=== PATIENT | female | born 1945 | race Caucasian/White ===

== ENCOUNTER 2018-12-01 07:19 | Day surgery (SDC) | payer MEDICARE, BC ==
[2018-12-01] MEDS ORDERED: Lactated Ringers 1,000 ML IV SCH (08:30)
[2018-12-01] MEDS ORDERED: Midazolam 1 MG/ML 2 ML SDV ONE (09:02)
[2018-12-01] MEDS ORDERED: fentaNYL 100 MCG/2 ML SDV ONE (09:02)
[2018-12-01] MEDS ORDERED: Propofol 200 MG/20 ML SDV ONE (09:02)
--- NOTE | 2018-12-01 11:49 | OR ---
DATE OF PROCEDURE: 12/01/2018 PREOPERATIVE DIAGNOSIS: Positive Cologuard. POSTOPERATIVE DIAGNOSES: Three small colon polyps, positive Cologuard. PROCEDURE: Colonoscopy to the cecum with biopsy resection of small polyps in the proximal transverse colon, mid transverse colon, and 20 cm from the anal verge. SURGEON: Michael Morales MD ANESTHESIA: IV anesthesia with monitored anesthesia care. INDICATION: This 73-year-old white female is referred for a colonoscopy because of a positive Cologuard. She is not sure when her last colonoscopic exam was done, but she thinks it is over ten years ago. I counseled her for the procedure including risks and alternatives, and she gave her informed consent to proceed. DESCRIPTION OF PROCEDURE: The patient was placed in the left lateral decubitus position. IV anesthesia was administered by the Anesthesia Service. Time-out was held. A rectal exam was performed, which was unremarkable. The flexible video Olympus colonoscope was introduced through her anus, up her rectum, and out her colon all the way to the cecum. En route, in the transverse colon, we saw a small polyp which was removed with the biopsy forceps. This was in the midtransverse colon. Going more proximally in the proximal transverse colon, we saw another small polyp, which was removed with a few bites of the biopsy forceps. To reach the cecum, we did have to apply some abdominal compression. Once the cecum was reached, the scope was slowly withdrawn examining the mucosa throughout. No additional mucosal abnormalities were noted until we reached 20 cm from anal verge. Here, a very small polyp was seen which we removed with a single bite of the biopsy forceps. The scope was retroflexed in the rectum with the distal rectum appearing unremarkable, except for some minor hemorrhoidal tissue. The scope was straightened and removed. She tolerated the procedure well. Michael Morales MD /[id number] [facility]ERNilson
== END 2018-12-01 11:10 | disposition home or self-care (01) ==
LOC: JP.SDS 07:19
PROVIDERS: ATTEND Surgery
DX: D12.3 Benign neoplasm of transverse colon (principal); K63.5 Polyp of colon; K64.9 Unspecified hemorrhoids; K21.9 Gastro-esophageal reflux disease without esophagitis; E78.5 Hyperlipidemia, unspecified; E03.9 Hypothyroidism, unspecified; Z88.4 Allergy status to anesthetic agent; Z88.0 Allergy status to penicillin; Z91.018 Allergy to other foods; Z95.0 Presence of cardiac pacemaker
CPT/HCPCS: 45380; 88305; J2250; J2704; J3010; J7120

== ENCOUNTER 2021-09-28 07:52 | Emergency (ER) | payer MEDICARE, BC | END 2021-09-28 09:23 | disposition home or self-care (01) | LOC: JP.ED 07:52 | DX: S00.83XA Contusion of other part of head, initial encounter (principal); M85.80 Other specified disorders of bone density and structure, unspecified site; M25.50 Pain in unspecified joint; G24.9 Dystonia, unspecified; R26.9 Unspecified abnormalities of gait and mobility; E03.9 Hypothyroidism, unspecified; Z88.4 Allergy status to anesthetic agent; Z91.018 Allergy to other foods; Z91.048 Other nonmedicinal substance allergy status; Z88.0 Allergy status to penicillin; Z95.0 Presence of cardiac pacemaker; W18.30XA Fall on same level, unspecified, initial encounter; Y92.009 Unspecified place in unspecified non-institutional (private) residence as the place of occurrence of the external cause | CPT/HCPCS: 36415; 81001; 85025; 85651; 99283 ==

== ENCOUNTER 2022-05-02 08:24 | Day surgery (SDC) | payer MEDICARE, BC ==
[2022-05-02] MEDS ORDERED: Lactated Ringers 1,000 ML IV SCH (09:30)
[2022-05-02] MEDS ORDERED: Propofol 200 MG/20 ML SDV ONE ×2 (10:12→11:50)
[2022-05-02] MEDS ORDERED: fentaNYL 50 MCG/ML SDV ONE (10:12)
== END 2022-05-02 13:16 | disposition home or self-care (01) ==
LOC: JP.SDS 08:24
PROVIDERS: ATTEND Student in an Organized Health Care Education/Training Program
DX: Z12.11 Encounter for screening for malignant neoplasm of colon (principal); D12.3 Benign neoplasm of transverse colon; E78.00 Pure hypercholesterolemia, unspecified; E03.9 Hypothyroidism, unspecified; Z88.0 Allergy status to penicillin; Z86.010 Personal history of colon polyps; Z79.899 Other long term (current) drug therapy; Z88.8 Allergy status to other drugs, medicaments and biological substances; Z88.4 Allergy status to anesthetic agent; Z91.018 Allergy to other foods
CPT/HCPCS: 45380; 62270; 88305; J2704; J3010; J7120

== ENCOUNTER 2022-07-29 08:41 | Emergency (ER) | payer MEDICARE, BC ==
[2022-07-29 10:06] LABS: ESTIMATED GFR 90 mL/min (>60)
== END 2022-07-29 14:50 ==
LOC: JP.ED 08:41
DX: M62.81 Muscle weakness (generalized) (principal); G24.9 Dystonia, unspecified; E03.9 Hypothyroidism, unspecified; Z79.899 Other long term (current) drug therapy; Z95.0 Presence of cardiac pacemaker; Z88.4 Allergy status to anesthetic agent; Z88.0 Allergy status to penicillin; Z91.018 Allergy to other foods; Z91.048 Other nonmedicinal substance allergy status; Z20.822 Contact with and (suspected) exposure to COVID-19
CPT/HCPCS: 36415; 70450; 71045; 80053; 81001; 84443; 85025; 86140; 99285; U0002

== ENCOUNTER 2022-08-19 12:16 | Emergency (ER) | payer MEDICARE, BC | END 2022-08-19 14:20 | disposition home or self-care (01) | LOC: JP.ED 12:16 | DX: R53.1 Weakness (principal); G24.9 Dystonia, unspecified; E03.9 Hypothyroidism, unspecified; Z91.018 Allergy to other foods; Z88.4 Allergy status to anesthetic agent; Z88.0 Allergy status to penicillin; Z91.048 Other nonmedicinal substance allergy status; Z88.5 Allergy status to narcotic agent; Z79.899 Other long term (current) drug therapy; Z95.0 Presence of cardiac pacemaker | CPT/HCPCS: 99283 ==